=== PATIENT | female | born 1950 | race Caucasian/White ===

== ENCOUNTER → 2018-08-24 | Day surgery (SDC) | payer MEDICARE ==
[2018-08-20 12:09] LABS: BASOPHILS % 0.4 % (0.0-1.0); EOSINOPHILS # (AUTO) 0.1 (0.0-0.4); EOSINOPHILS % 1.8 % (0.0-6.0); HEMATOCRIT 37.4 % (34.2-44.1); HEMOGLOBIN 12.6 g/dL (12.0-16.0); LYMPHOCYTES % 36.4 % (18.0-39.1); MEAN CORPUSCULAR HEMOGLOBIN 32.5 pg (28-32); MEAN CORPUSCULAR HGB CONC 33.7 g/dL (31-35); MEAN CORPUSCULAR VOLUME 96.4 fL (81-99); MONOCYTES # (AUTO) 0.6 (0.2-0.8); MONOCYTES % 11.2 % (4.4-11.3); NEUTROPHILS # (AUTO) 2.8 (2.1-6.9); PLATELET COUNT 198 x10e3/uL (140-360); RED BLOOD COUNT 3.88 x10e6/uL (3.6-5.1); RED CELL DISTRIBUTION WIDTH 13.2 % (11.7-14.4)
[~2018-08-24] MED LIST: ALLERGY INJ; ASPIRIN81 MG; CALCIUM 500+D1 EACH; CLOPIDOGREL75 MG PO; CRANBERRY200 MG; CRESTOR5 MG; FENTANYL CITRATE/PF 100MCG/2 ML INJ ONE; FIBER TABS625 MG; FISH OIL 1,0001 EAC2; GLUCOSAMINE1000 MG; LEVOCETIRIZINE D1 GM; LISINOPRIL10 MG PO; MIDAZOLAM HCL 2 MG/2 ML VIAL ONE; MIRALAX17 GM; MULTI-VITAMIN1 EACH; NAMZARIC; PROPOFOL IV EMULSION 10 MG/ML 50 ML VIAL ONE; PROTONIX40 MG/ML; QNASL; TURMERIC1 GM; ULTRAM50 MG PO; VITAMIN B12-FO1 EACH; VITAMIN C1000 MG; VITAMIN D31 GM
--- OUTSIDE RECORDS SUMMARY | 2018-08-24 08:25 | XMS REPORT ---
Author [facility] Address Unknown Phone Unavailable Care Team Providers Care Balancing Machine Operator Name Role Phone Unavailable Unavailable Payers Payer Name Policy Type Policy Number Effective Date Expiration Date Problems This patient has no known problems. Allergies, Adverse Reactions, Alerts Allergy Name Allergy Type Status Severity Reaction(s) Onset Date Inactive Date Treating Clinician Comments ceftriaxone DA Active 2018-07-23 00:00:00 lincomycin DA Active 2018-07-23 00:00:00 Cat/Feline Product Derivatives DA Active SD 2010-01-09 00:00:00 egg DA Active SD 2010-01-09 00:00:00 DUST MITES DA Active MO 2010-01-09 00:00:00 POLLEN DA Active SD 2010-01-09 00:00:00 Medications This patient has no known medications. Results Test Description Test Time Test Comments Text Results Atomic Results Result Comments - XR CHEST 2 V 2018-07-23 12:21:00 FAX: Jeana Severino [phone] Mission: St: PRE FAX: Cande Thomas MD [phone] Name: NED BUSH [facility] : 1950 Age/S: 67/F [address] [place] [address] Unit #: [id number] Loc: [place] [address] Phys: Cande Dennison MD Acct: [id number] Dis Date: Status: PRE SDC PHONE #: [phone] Exam Date: 07/23/20181225 FAX #: [phone] Reason: PREOP EXAMS: CPT CODE: [id number] XR CHEST 2 V 81770 EXAM: PA and lateral chest. EXAM DATE: July 23, 2018 CLINICAL HISTORY: Pre--CP COMPARISON: January 07, 2010 Cardiomediastinal silhouette is within normal limits. The lungs appear free of acute disease. Osseous structures are within normal limits. IMPRESSION: No evidence of acute cardiopulmonary disease. at 1221 Reported and signed by: Patricia Ludwig M.D. CC: Jeana Ahumada; Cande Dennison MD Technologist: RT Steph(R) Trnscrd Date/Time/By: 07/23/2018 (122) : By: José AntonioCER Orig Print D/T: S: 07/23/2018 ([id number]) PAGE 1 Signed Report BASIC METABOLIC PANEL 2018-07-23 11:56:00 SODIUM (test code=NA) 144 mEq/L 134-147 POTASSIUM (test code=K) 4.2 mEq/L 3.4-5.0 CHLORIDE (test code=CL) 107 mEq/L 100-108 CARBON DIOXIDE (test code=CO2) 33 mEq/L 21-33 ANION GAP (test code=GAP) 8 0-20 GLUCOSE (test code=GLU) 118 mg/dL 70-110 BLOOD UREA NITROGEN (test code=BUN) 15 mg/dL 7-18 GLOMERULAR FILTRATION RATE (test code=GFR) 62.5 80-90 Units of measure=ml/min/1.73 m2 CREATININE (test code=CREAT) 0.9 mg/dL 0.6-1.3 CALCIUM (test code=CA) 9.7 mg/dL 8.0-10.5 PROTHROMBIN [id number] 11:31:00* Test Item Value Reference Range Comments PROTHROMBIN TIME PATIENT (test code=PTP) 11.3 SECONDS 9.3-12.9 INTERNATIONAL NORMAL RATIO (test code=INR) 1.0 0.8-1.2 TARGET INR BY INDICATION Indication INR1. Prophylaxis of venous thrombosis 2.0 - 3.0 (orthopedic surgery), Prophylaxis of venous thrombosis (other than high-risk surgery), Treatment of Deep Vein Thrombosis/Pulmonary Embolism, Prevention of systemic embolism - Tissue heart valves, Acute Myocardial Infarction (to prevent systemic embolism), Valvular heart disease, Atrial Fibrillation, Bileaflet mechanical valve in aortic position.2. Mechanical prosthetic valves (high risk), 2.5 - 3.5 Presence of Lupus Anticoagulant or Antiphospholipid Antibodies, Prevention of systemic embolism - Acute Myocardial Infarction (to prevent recurrent infarct). CBC W/AUTO [id number] 11:15:00* Test Item Value Reference Range Comments WHITE BLOOD CELL (test code=WBC) 6.45 x10 3/uL 4.5-11.0 RED BLOOD CELL (test code=RBC) 4.10 x10 6/uL 3.54-5.02 HEMOGLOBIN (test code=HGB) 13.1 g/dL 11.0-15.0 HEMATOCRIT (test code=HCT) 40.1 % 33.0-45.0 MEAN CELL VOLUME (test code=MCV) 97.8 fL 81.0-99.0 MEAN CELL HGB (test code=MCH) 32.0 pg 27.0-33.0 MEAN CELL HGB CONCETRATION (test code=MCHC) 32.7 g/dL 33.0-37.0 RED CELL DISTRIBUTION WIDTH CV (test code=RDW) 12.8 % 11.5-14.5 RED CELL DISTRIBUTION WIDTH SD (test code=RDW-SD) 46.2 fL 37.0-54.0 PLATELET COUNT (test code=PLT) 217 x10 3/uL 150-400 MEAN PLATELET VOLUME (test code=MPV) 9.2 fL 7.0-9.0 NEUTROPHIL % (test code=NT%) 66.2 % 56.0-77.0 IMMATURE GRANULOCYTE % (test code=IG%) 0.3 % 0.0-2.0 LYMPHOCYTE % (test code=LY%) 24.0 % 14.0-32.0 MONOCYTE % (test code=MO%) 8.4 % 4.8-9.0 EOSINOPHIL % (test code=EO%) 0.8 % 0.3-3.7 BASOPHIL % (test code=BA%) 0.3 % 0.0-2.0 NUCLEATED RBC % (test code=NRBC%) 0.0 % 0-0 NEUTROPHIL # (test code=NT#) 4.27 x10 3/uL 2.0-7.6 IMMATURE GRANULOCYTE # (test code=IG#) 0.02 x10 3/uL 0.00-0.03 LYMPHOCYTE # (test code=LY#) 1.55 x10 3/uL 1.0-3.8 MONOCYTE # (test code=MO#) 0.54 x10 3/uL 0.1-0.8 EOSINOPHIL # (test code=EO#) 0.05 x10 3/uL 0.0-0.2 BASOPHIL # (test code=BA#) 0.02 x10 3/uL 0.0-0.2 NUCLEATED RBC # (test code=NRBC#) 0.00 x10 3/uL 0.0-0.1 MANUAL DIFF REQUIRED (test code=MDIFF) NO
--- OUTSIDE RECORDS SUMMARY | 2018-08-24 08:25 | XMS REPORT | Clinical Summary ---
Author Author [facility] Address Unknown Phone Unavailable Care Team Providers Care Community Health Promoter Name Role Phone Jeana Ahumada MD PCP Allergies Comments Active Allergy Reactions Severity Noted Date Lincomycin Itching 01/11/2018 Ceftriaxone Itching High 01/09/2017 Medications End Date Status Medication Sig Dispensed Refills Start Date Active rosuvastatin (CRESTOR) 5 Take 5 mg by 0 MG tablet mouth daily. Active BECLOMETHASONE 2 sprays into 0 DIPROPIONATE (QNASL NASL) each nostril daily. Active pantoprazole (PROTONIX) Take 40 mg by 0 40 MG EC tablet mouth daily. Active levocetirizine (XYZAL) 5 Take 5 mg by 0 MG tablet mouth daily. Active lisinopril Take 10 mg by 0 (PRINIVIL,ZESTRIL) 10 mg mouth daily. tablet Active aspirin (ECOTRIN) 81 MG Take 81 mg by 0 enteric coated tablet mouth daily. Active clopidogrel (PLAVIX) 75 Take 75 mg by 0 mg tablet mouth daily. Active multivitamin (THERAGRAN) Take 1 tablet 0 tablet by mouth daily. Active calcium carbonate-vitamin Take 1 tablet 0 D3 500 mg-200 unit per by mouth tablet daily. Active cyanocobalamin 500 MCG Take 1,000 0 tablet mcg by mouth daily. Active ascorbic acid, vitamin C, Take 1,000 mg 0 (VITAMIN C) 500 MG tablet by mouth daily. Active cholecalciferol, vitamin Take 2,000 0 D3, (VITAMIN D3) 2,000 Units by unit capsule capsule mouth daily. Active polyethylene glycol Take 17 g by 0 (MIRALAX) 17 gram packet mouth daily. 04/09/2018 acetaminophen-codeine Take 1-2 20 tablet 0 (TYLENOL WITH CODEINE #3) tablets by 8 300-30 mg per tablet mouth every 6 (six) hours as needed for moderate pain for up to 5 days. 05/04/2018 ondansetron ODT (ZOFRAN Take 1 tablet 12 tablet 0 ODT) 4 MG disintegrating (4 mg total) 8 tablet by mouth every 8 (eight) hours as needed for nausea for up to 30 days. Active Problems Problem Noted Date Cellulitis of face 01/09/2017 Facial cellulitis 01/09/2017 Encounters Care Team Description Date Type Specialty Matthew Bates DO Low back pain, unspecified back pain laterality, unspecified chronicity, with sciatica presence unspecified (Primary Dx) 04/27/2018 Transcribe Access Orders Akil Trejo MD Back strain, initial encounter (Primary Dx); Abrasion of right forearm, initial encounter; Strain of left hand, initial encounter 04/04/2018 Emergency Emergency Medicine VisariaRicardo MD Well woman exam (Primary Dx); Cervical cancer screening 01/11/2018 Office Visit Obstetrics and Gynecology after 08/23/2017 Family History Medical History Relation Name Comments Breast cancer Maternal Aunt 40s Breast cancer Maternal Aunt 40s Relation Name Status Comments Maternal Aunt Maternal Aunt Social History Date Tobacco Use Types Packs/Day Years Used Former Smoker Smokeless Tobacco: Never Used Alcohol Use Drinks/Week oz/Week Comments Yes 2 Glasses of 1.2 occassional wine Sex Assigned at Date Recorded Not on file Industry Job Start Date Occupation Not on file Not on file Not on file Travel End Travel History Travel Start No recent travel history available. Last Filed Vital Signs Time Taken Vital Sign Reading 04/04/2018 5:53 PM PASTEURISER OPERATOR Blood Pressure 188/72 04/04/2018 5:53 PM PASTEURISER OPERATOR Pulse 68 04/04/2018 2:38 PM PASTEURISER OPERATOR Temperature 36.9 C (98.5 F) 04/04/2018 5:53 PM PASTEURISER OPERATOR Respiratory Rate 17 04/04/2018 5:53 PM PASTEURISER OPERATOR Oxygen Saturation 98% - Inhaled Oxygen - Concentration 01/11/2018 1:24 PM CDT Weight 96.2 kg (212 lb) 04/04/2018 2:38 PM PASTEURISER OPERATOR Height 167.6 cm (5' 6") 01/11/2018 1:24 PM CDT Body Mass Index 34.22 Plan of Treatment Health Maintenance Due Date Last Done Comments BREAST CANCER SCREENING 2000 COLON CANCER SCREENING 2000 SHINGLES VACCINES (#1) 2000 65+ PNEUMOCOCCAL VACCINE 11/16/2015 (1 of 2 - PCV13) PNEUMOCOCCAL 11/16/2015 POLYSACCHARIDE VACCINE AGE 65 AND OVER INFLUENZA VACCINE 11/18/2018 Procedures Comments Procedure Name Priority Date/Time Associated Diagnosis XR ELBOW 3+ VW RIGHT STAT 04/04/2018 4:20 PM PASTEURISER OPERATOR XR FOOT 3+ VW RIGHT STAT 04/04/2018 4:20 PM PASTEURISER OPERATOR XR HAND 3+ VW LEFT STAT 04/04/2018 4:[address] LUMBAR SPINE WO STAT 04/04/2018 CONTRAST 4:00 PM PASTEURISER OPERATOR THINPREP TIS PAP Routine 01/11/2018 2:10 PM CDT PAP W/AGE BASED SCREENING Routine 01/11/2018 Well woman exam PROTOCOLS 2:10 PM CDT after 08/23/2017 Results * XR Foot 3+ Vw Right (04/04/2018 4:20 PM PASTEURISER OPERATOR) Narrative Performed At EXAMINATION:XR FOOT 3VW RIGHT [facility] CLINICAL HISTORY:foot strain COMPARISON:None. IMPRESSION: Bones are demineralized. No acute osseous abnormality or malalignment is noted. There are some degenerative changes. [facility]-[id number] Procedure Note Hm Interface, Radiology Results Incoming - 04/04/2018 4:31 PM PASTEURISER OPERATOR EXAMINATION: XR FOOT 3 VW RIGHT CLINICAL HISTORY: foot strain COMPARISON: None. IMPRESSION: Bones are demineralized. No acute osseous abnormality or malalignment is noted. There are some degenerative changes. [facility]-[id number] Performing Organization Address City/State/Zipcode Phone Number [facility] [address] [place] [address] * XR Hand 3+ Vw Left (04/04/2018 4:20 PM PASTEURISER OPERATOR) Narrative Performed At EXAMINATION:XR HAND 3VW LEFT [facility] CLINICAL HISTORY:fall left hand pain COMPARISON:None. IMPRESSION: There are extensive degenerative changes primarily at the first carpal-metacarpal joint. No acute osseous abnormality or malalignment is noted. [facility]-[id number] Procedure Note Hm Interface, Radiology Results Incoming - 04/04/2018 4:33 PM PASTEURISER OPERATOR EXAMINATION: XR HAND 3 VW LEFT CLINICAL HISTORY: fall left hand pain COMPARISON: None. IMPRESSION: There are extensive degenerative changes primarily at the first carpal- metacarpal joint. No acute osseous abnormality or malalignment is noted. [facility]-[id number] Performing Organization Address [facility] Phone Number [facility] [address] [place] [address] * XR Elbow 3+ Vw Right (04/04/2018 4:20 PM PASTEURISER OPERATOR) Narrative Performed At EXAMINATION:XR ELBOW 3VW RIGHT [facility] CLINICAL HISTORY:elbow painhx fall COMPARISON:None. IMPRESSION: There is no evidence of acute right elbow fracture, dislocation, or joint effusion. [facility]-[id number] Procedure Note Interface, Radiology Results Incoming - 04/04/2018 4:30 PM PASTEURISER OPERATOR EXAMINATION: XR ELBOW 3 VW RIGHT CLINICAL HISTORY: elbow pain hx fall COMPARISON: None. IMPRESSION: There is no evidence of acute right elbow fracture, dislocation, or joint effusion. [facility]-[id number] Performing Organization Address [facility] Phone Number [facility] [address] [place] [address] * CT Lumbar Spine Wo Contrast (04/04/2018 4:00 PM PASTEURISER OPERATOR) Narrative Performed At EXAMINATION: CT LUMBAR SPINE WO CONTRAST [facility] CLINICAL HISTORY: low back pain fall COMPARISON:None TECHNIQUE: Axial noncontrast enhanced images of lumbar spine was performed with coronal sagittal reconstruction algorithms. CT imaging was performed with iterative reconstruction technique and/or automated exposure control to reduce radiation dose. FINDINGS: There are 5 non-rib bearing lumbar type vertebrae, the lowest labeled L5 in this report as identified by the lumbosacral angle and iliolumbar ligaments. There are healed postsurgical changes compatible with decompressive laminectomies L3-S1, intervertebral discectomies L3-L5 and posterior spinal instrumentation L4-L5. Surgical hardware appears intact, with solid osseous integration. There is 4 middle ear anterolisthesis L4 on L5, instrumented and 2 mm retrolisthesis L2 on L3. Vertebral body heights are preserved. Evaluation of the visualized soft tissues demonstrates no mass, adenopathy or aneurysm. No hydronephrosis. Scattered vascular calcifications are noted throughout the abdominal aorta. Axial images through the disc spaces demonstrate the following: L1-L2: Mild to moderate circumferential disc bulge which indents the ventral thecal sac and results in mild to moderate central canal and bilateral neural foraminal stenosis. L2-L3: 2 mm retrolisthesis and circumferential disc bulge which indents the ventral thecal sac and results in mild to moderate central canal stenosis. There is also moderate to marked bilateral neural foraminal stenosis related to endplate and facet osteophytes. L3-L4: Disc is surgically absent. Spinal canal is decompressed. Neural foramina are patent bilaterally. L4-L5: Disc is surgically absent. Spinal canal is decompressed. Neural foramina are patent bilaterally. L5-S1: No significant posterior disc disease. Spinal canal is decompressed. Neural foramina are patent bilaterally. Evaluation of other visualized levels demonstrates no significant posterior disc disease, spinal canal, subarticular zone, or neural foraminal stenosis. IMPRESSION: Healed postsurgical changes compatible with decompressive laminectomies L3-S1, intervertebral discectomies L3-L5 and posterior spinal instrumentation L4-L5. Adjacent level disc degeneration at L2-L3, where there is moderate to marked bilateral neural foraminal stenosis and mild to moderate central canal narrowing. [facility]-[id number] Procedure Note [facility], Radiology Results Incoming - 04/04/2018 4:20 PM PASTEURISER OPERATOR EXAMINATION: CT LUMBAR SPINE WO CONTRAST CLINICAL HISTORY: low back pain fall COMPARISON: None TECHNIQUE: Axial noncontrast enhanced images of lumbar spine was performed with coronal sagittal reconstruction algorithms. CT imaging was performed with iterative reconstruction technique and/or automated exposure control to reduce radiation dose. FINDINGS: There are 5 non-rib bearing lumbar type vertebrae, the lowest labeled L5 in this report as identified by the lumbosacral angle and iliolumbar ligaments. There are healed postsurgical changes compatible with decompressive laminectomies L3- S1, intervertebral discectomies L3-L5 and posterior spinal instrumentation L4-L5. Surgical hardware appears intact, with solid osseous integration. There is 4 middle ear anterolisthesis L4 on L5, instrumented and 2 mm retrolisthesis L2 on L3. Vertebral body heights are preserved. Evaluation of the visualized soft tissues demonstrates no mass, adenopathy or aneurysm. No hydronephrosis. Scattered vascular calcifications are noted throughout the abdominal aorta. Axial images through the disc spaces demonstrate the following: L1-L2: Mild to moderate circumferential disc bulge which indents the ventral thecal sac and results in mild to moderate central canal and bilateral neural foraminal stenosis. L2-L3: 2 mm retrolisthesis and circumferential disc bulge which indents the ventral thecal sac and results in mild to moderate central canal stenosis. There is also moderate to marked bilateral neural foraminal stenosis related to endplate and facet osteophytes. L3-L4: Disc is surgically absent. Spinal canal is decompressed. Neural foramina are patent bilaterally. L4-L5: Disc is surgically absent. Spinal canal is decompressed. Neural foramina are patent bilaterally. L5-S1: No significant posterior disc disease. Spinal canal is decompressed. Neural foramina are patent bilaterally. Evaluation of other visualized levels demonstrates no significant posterior disc disease, spinal canal, subarticular zone, or neural foraminal stenosis. IMPRESSION: Healed postsurgical changes compatible with decompressive laminectomies L3-S1, intervertebral discectomies L3-L5 and posterior spinal instrumentation L4-L5. Adjacent level disc degeneration at L2-L3, where there is moderate to marked bilateral neural foraminal stenosis and mild to moderate central canal narrowing. [facility]-[id number] Performing Organization Address City/[facility]/Zipcode Phone Number [facility] [address] [place] [address] * PAP W/AGE BASED SCREENING PROTOCOLS (01/11/2018 2:10 PM CDT) Comment Comment: JENARO This order for age-based DIAGNOSTICS-[facility] cervical cancer and STI II screening follows ACOG guidelines(PB 168, 140, RSH726). See individual assays for performing site location. Specimen Cervical Resulting Agency Comment Performing Organization Information: Site ID: [id number] Name: [facility] Address: [address] [place] [id number] Director: Dr. Krishna Astudillo Performing Organization Address City/[facility]/Zipcode Phone Number [facility] [address] [facility] [place] [address] II * THINPREP TIS PAP (01/11/2018 2:10 PM CDT) Clinical information None given [facility] [place] Date of last menstrual NONE GIVEN [facility] [place] Prev. pap: NONE GIVEN [facility] [place] Prev. bx: NONE GIVEN [facility] [place] Source None given [facility] [place] Statement of adequacy Comment: [facility] Satisfactory for evaluation. [place] Endocervical/transformation zone component present. Interpretation/result: Comment: [facility] Negative for intraepithelial NOEL lesion or malignancy. Atrophic pattern; predominantly parabasal cells Comment Comment: [facility] This Pap test has been NOEL evaluated with computer assisted technology. Tip of collection device in vial Final Armature Tester Comment: [facility] JRR, CT (ASCP) [place] CT screening location: [address], [place] [id number] Comment Comment: [facility] EXPLANATORY NOTE: [place] The Pap is a screening test for cervical cancer. It is not a diagnostic test and is subject to false negative and false positive results. It is most reliable when a satisfactory sample, regularly obtained, is submitted with relevant clinical findings and history, and when the Pap result is evaluated along with historic and current clinical information. Resulting Agency Comment Performing Organization Information: Site ID: [id number] Name: [place] [facility] Address: [address] [place] [phone] Director: Desiree Marshall Performing Organization Address City/State/Zipcode Phone Number [facility] [place] [address] after 08/23/2017 Insurance Payer Benefit Subscriber ID Type Phone Address Plan / Group HU[employer]NA MEDICARE HUMANA xxxxxxxxx PPO MEDICARE PPO/PFFS/[facility] Advance Directives Patient has advance care planning documents on file. For more information, maria elena flores contact: Bert Osuna [address] [place] [address]
[2018-08-24 12:15] VITALS: BP 155/63
== END | disposition home or self-care (01) ==
LOC: OR 08:22
PROVIDERS: ATTEND Internal Medicine Gastroenterology
DX: K29.70 Gastritis, unspecified, without bleeding (principal); K31.7 Polyp of stomach and duodenum; K44.9 Diaphragmatic hernia without obstruction or gangrene; K21.9 Gastro-esophageal reflux disease without esophagitis; K57.30 Diverticulosis of large intestine without perforation or abscess without bleeding; K64.8 Other hemorrhoids; G47.33 Obstructive sleep apnea (adult) (pediatric); R00.1 Bradycardia, unspecified; I10 Essential (primary) hypertension; E78.5 Hyperlipidemia, unspecified; I25.10 Atherosclerotic heart disease of native coronary artery without angina pectoris; F01.50 Vascular dementia, unspecified severity, without behavioral disturbance, psychotic disturbance, mood disturbance, and anxiety; F32.9 Major depressive disorder, single episode, unspecified; Z88.1 Allergy status to other antibiotic agents; Z01.810 Encounter for preprocedural cardiovascular examination; Z01.812 Encounter for preprocedural laboratory examination; Z79.82 Long term (current) use of aspirin; Z79.02 Long term (current) use of antithrombotics/antiplatelets; Z68.32 Body mass index [BMI] 32.0-32.9, adult; Z98.61 Coronary angioplasty status; Z86.73 Personal history of transient ischemic attack (TIA), and cerebral infarction without residual deficits; Z83.79 Family history of other diseases of the digestive system
CPT/HCPCS: 36415; 43239; 45378; 85025; 88305; 88312; 93005; J2250; J2704